=== PATIENT | female | born 1970 | race Hispanic/Latino ===

== ENCOUNTER 2020-06-20 11:23 | Emergency (ER) | payer OTHER ==
[~2020-06-20] VITALS: Ht 162.6 cm; Wt 82.6 kg
--- NOTE | 2020-06-20 11:55 | Emergency Department Note ---
History of Present Illnes History of Present Illness Chief Complaint: COVID PUI History of Present Illness This is a 50 year old female c/o flu-like symptoms for 2 weeks, cough, sore throat f/c body ache. She was told told to have a flu. Arrival Mode: Car [employer] Consultant Required: No Onset (how long ago): week(s) Radiation: Reports non-radiation Severity: mild Onset quality: gradual Duration (how long): week(s) Timing of current episode: intermittent Progression: waxing and waning Relieving factors: none Exacerbating factors: none Associated symptoms: Reports other Treatments prior to arrival: none Past Medical/Family History Physician Review I have reviewed the patient's past medical and family history. Any updates have been documented here. Past Medical History Recent Fever: Yes Clinical Suspicion of Infectio: Yes New/Unexplained Change in Ment: No Past Medical History: None Past Surgical History: None Social History Smoking Cessation: Unknown if ever smoked Alcohol Use: Social Any Illegal Drug Use: No TB Exposure/Symptoms: No Physically hurt or threatened: No Family History Family history of heart diseas: No Other Any Pre-Existing Lines (PICC,: No Review of Systems Review of Systems Constitutional: Reports as per HPI, Reports chills, Reports fever, Reports malaise, Reports weakness EENTM: Reports no symptoms Cardiovascular: Reports no symptoms Respiratory: Reports chest congestion, Reports cough Gastrointestinal: Reports no symptoms Genitourinary: Reports no symptoms Musculoskeletal: Reports no symptoms Integumentary: Reports no symptoms Neurological: Reports no symptoms Psychological: Reports no symptoms Endocrine: Reports no symptoms Hematological/Lymphatic: Reports no symptoms Physical Exam Related Data Allergies: Coded Allergies: No Known Allergies (Unverified , 06/20/20) Vital signs reviewed: Yes (temp 100.3) Physical Exam CONSTITUTIONAL Constitutional: Present well-developed, Present well-nourished HENT HENT: Present normocephalic, Present atraumatic, Present oropharynx clear/moist, Present nose normal HENT L/R: Present left ext ear normal, Present right ext ear normal EYES Eyes: Reports PERRL, Reports conjunctivae normal NECK Neck: Present ROM normal PULMONARY Pulmonary: Present effort normal, Present breath sounds normal CARDIOVASCULAR Cardiovascular: Present regular rhythm, Present heart sounds normal, Present capillary refill normal, Present normal rate GASTROINTESTINAL Abdominal: Present soft, Present nontender, Present bowel sounds normal GENITOURINARY Genitourinary: Present exam deferred SKIN Skin: Present warm, Present dry MUSCULOSKELETAL Musculoskeletal: Present ROM normal NEUROLOGICAL Neurological: Present alert, Present oriented x 3, Present no gross motor or sensory deficits PSYCHOLOGICAL Psychological: Present mood/affect normal, Present judgement normal Assessment & Plan Medical Decision Making MDM covid 19 vs viral illness Assessment & Plan Final Impression: (1) COVID-19 virus infection Depart Disposition: HOME, SELF-CARE Physician Attestation Provider Attestation Pt is nontoxic, VSS, taking PO well, can d/yehuda. rec pt to go out patient testing. SHELDON HERNANDEZ MD Jun 20, 2020 11:55
--- OUTSIDE RECORDS SUMMARY | 2020-06-20 12:14 | XMS REPORT | Clinical Summary ---
Author Author [facility] Organization [facility] Address Unknown Phone Unavailable Care Team Providers Care Blood Bank Manager Name Role Phone Nolberto Dsouza DDS 6 Nadiya Lee MD PCP Allergies No Known Allergies Medications End Date Status Medication Sig Dispensed Refills Start Date Active PRECISION XTRA 1 1 0 GLUCOMETERIndications: DM 9 (diabetes mellitus) Active PRECISION XTRA TEST bid three 50 3 STRIPSIndications: DM times per 9 (diabetes mellitus) week Active ACCU-CHEK SOFTCLIX 3 times a 50 113 00 LANCETSIndications: DM week 9 (diabetes mellitus) Active blood glucose Use as 1 Kit 0 meterIndications: Type 2 directed.. 6 diabetes mellitus without complication, without long-term current use of insulin Active hydroCHLOROthiazide Take 1 90 capsule 1 (MICROZIDE) 12.5 mg capsule by 0 capsuleIndications: mouth every Essential hypertension morning. with goal blood pressure less than 140/90 Active metFORMIN (GLUCOPHAGE) Take 2 360 tablet 1 500 mg tabletIndications: tablets by 0 Type 2 diabetes mellitus mouth 2 times without complication, daily (with without long-term current meals). use of insulin Active lisinopriL (PRINIVIL, Take 1 tablet 90 tablet 1 ZESTRIL) 40 mg by mouth 0 tabletIndications: daily. Essential hypertension with goal blood pressure less than 140/90 Active blood glucose test Use 2 times 100 Each 11 stripsIndications: Type 2 daily 0 diabetes mellitus without complication, without long-term current use of insulin Active ibuprofen (MOTRIN) 400 mg Take 1 tablet 60 tablet 1 tabletIndications: by mouth 0 Chronic midline low back every 12 pain without sciatica hours as needed for Pain (take with food). Active lancets 28 Use 2 times a 100 Each 11 gaugeIndications: Type 2 day 0 diabetes mellitus without complication, without long-term current use of insulin Active metoprolol tartrate Take 1 tablet 180 tablet 0 05/12 (LOPRESSOR) 25 mg by mouth 2 0 tabletIndications: times daily. Essential hypertension with goal blood pressure less than 140/90 Active glimepiride (AMARYL) 4 mg Take 1 tablet 90 tablet 1 tabletIndications: by mouth 0 Uncontrolled diabetes daily (with mellitus type 2 without breakfast). complications 06/28/2020 Active amoxicillin (AMOXIL) 500 Take 1 30 capsule 0 0 mg capsuleIndications: capsule by 0 Cough mouth 3 times daily for 10 days. 06/24/2020 Active Brompheniramine-Pseudoeph Take 5 mL by 120 mL 0 -DM (BROMFED DM) 2-30-10 mouth 4 times 0 mg/5 mL syrupIndications: daily as Cough needed for up to 10 days for Cough. Active simvastatin (ZOCOR) 10 mg Take 1 tablet 30 tablet 0 tabletIndications: by mouth at 0 Dyslipidemia bedtime nightly. 06/25/2020 Active iouuqoiq-trgvfltet-lbttrr Instill 3 10 mL 0 ortisone (CORTISPORIN) Drops in 0 3.5-10,000-1 right ear 4 mg/mL-unit/mL-% otic times daily solutionIndications: Ear for 7 days. ache 08/06/2019 Discontinued (Reorder) glimepiride (AMARYL) 1 mg Take 2 180 tablet 1 tabletIndications: Type 2 tablets by 9 diabetes mellitus without mouth every complication, without morning long-term current use of (after insulin breakfast). 08/06/2019 Discontinued (Reorder) hydroCHLOROthiazide Take 1 90 capsule 1 (MICROZIDE) 12.5 mg capsule by 9 capsuleIndications: mouth every Essential hypertension morning. with goal blood pressure less than 140/90 08/06/2019 Discontinued (Reorder) metFORMIN (GLUCOPHAGE) Take 2 360 tablet 1 500 mg tabletIndications: tablets by 9 Type 2 diabetes mellitus mouth 2 times without complication, daily (with without long-term current meals). use of insulin 06/26/2019 Discontinued (Reorder) metoprolol tartrate Take 1 tablet 180 tablet 1 12/14 (LOPRESSOR) 25 mg by mouth 2 9 tabletIndications: times daily. Essential hypertension with goal blood pressure less than 140/90 06/26/2019 Discontinued (Reorder) simvastatin (ZOCOR) 10 mg Take 1 tablet 90 tablet 1 tabletIndications: by mouth at 9 Dyslipidemia bedtime nightly. 06/26/2019 Discontinued (Reorder) lisinopril (PRINIVIL, Take 1 tablet 90 tablet 1 ZESTRIL) 40 mg by mouth 9 tabletIndications: daily. Essential hypertension with goal blood pressure less than 140/90 12/15/2019 Discontinued (Reorder) blood glucose test Use 2 times 100 Each 01/09/ 01 stripsIndications: Type 2 daily 9 diabetes mellitus without complication, without long-term current use of insulin 12/15/2019 Discontinued (Reorder) lancets 28 Use 2 times 100 Each 11 gaugeIndications: Type 2 weekly 9 diabetes mellitus without complication, without long-term current use of insulin 08/06/2019 Discontinued (Reorder) lisinopril (PRINIVIL, Take 1 tablet 90 tablet 0 ZESTRIL) 40 mg by mouth 9 tabletIndications: daily. Essential hypertension with goal blood pressure less than 140/90 08/06/2019 Discontinued (Reorder) simvastatin (ZOCOR) 10 mg Take 1 tablet 90 tablet 0 tabletIndications: by mouth at 9 Dyslipidemia bedtime nightly. 08/06/2019 Discontinued (Reorder) metoprolol tartrate Take 1 tablet 180 tablet 0 06/12 (LOPRESSOR) 25 mg by mouth 2 9 tabletIndications: times daily. Essential hypertension with goal blood pressure less than 140/90 08/06/2019 tropicamide (MYDRIACYL) Instill 1 15 mL 0 0.5 % ophthalmic Drop in each 9 solutionIndications: Type eye once as 2 diabetes mellitus needed for up without complication, to 1 dose without long-term current (for poor use of insulin retina scan image). 08/14/2019 nitrofurantoin Take 1 14 capsule 0 mono/m-crystals capsule by 9 (MACROBID) 100 mg mouth 2 times capsuleIndications: daily for 7 Dysuria days. 12/15/2019 Discontinued (Therapy comple vickie) glimepiride (AMARYL) 1 mg Take 3 270 tablet 1 tabletIndications: Type 2 tablets by 9 diabetes mellitus without mouth every complication, without morning long-term current use of (after insulin breakfast). 12/15/2019 Discontinued (Reorder) lisinopril (PRINIVIL, Take 1 tablet 90 tablet 1 ZESTRIL) 40 mg by mouth 9 tabletIndications: daily. Essential hypertension with goal blood pressure less than 140/90 12/15/2019 Discontinued (Reorder) simvastatin (ZOCOR) 10 mg Take 1 tablet 90 tablet 1 tabletIndications: by mouth at 9 Dyslipidemia bedtime nightly. 12/15/2019 Discontinued (Reorder) metoprolol tartrate Take 1 tablet 180 tablet 1 07/14 (LOPRESSOR) 25 mg by mouth 2 9 tabletIndications: times daily. Essential hypertension with goal blood pressure less than 140/90 12/15/2019 Discontinued (Reorder) hydroCHLOROthiazide Take 1 90 capsule 1 (MICROZIDE) 12.5 mg capsule by 9 capsuleIndications: mouth every Essential hypertension morning. with goal blood pressure less than 140/90 12/15/2019 Discontinued (Reorder) metFORMIN (GLUCOPHAGE) Take 2 360 tablet 1 500 mg tabletIndications: tablets by 9 Type 2 diabetes mellitus mouth 2 times without complication, daily (with without long-term current meals). use of insulin 05/28/2020 Discontinued (Reorder) glimepiride (AMARYL) 4 mg Take 1 tablet 90 tablet 1 tabletIndications: by mouth 0 Uncontrolled diabetes daily (with mellitus type 2 without breakfast). complications 05/27/2020 Discontinued (Reorder) metoprolol tartrate Take 1 tablet 180 tablet 1 (LOPRESSOR) 25 mg by mouth 2 0 tabletIndications: times daily. Essential hypertension with goal blood pressure less than 140/90 06/14/2020 Discontinued (Reorder) simvastatin (ZOCOR) 10 mg Take 1 tablet 90 tablet 1 tabletIndications: by mouth at 0 Dyslipidemia bedtime nightly. 12/15/2019 Discontinued lancets 28 Use 2 times 100 Each 11 gaugeIndications: Type 2 weekly 0 diabetes mellitus without complication, without long-term current use of insulin 06/14/2020 Discontinued (Reorder) gzkqgpjl-dpjgmvqva-iqhwou Instill 3 5 mL 0 ortisone (CORTISPORIN) Drops in 0 3.5-10,000-1 right ear 4 mg/mL-unit/mL-% otic times daily solutionIndications: Ear for 7 days. 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 08/13/2019 edema associated with type 2 diabetes m samanthaitus History of complete foot exam by sulphate tester or other provider 04/10/2014 Obesity (BMI 30-39.9) 12/24/2013 Hip pain 02/23/2010 Hypertriglyceridemia 05/24/2007 Obesity, unspecified 10/15/2006 Type 2 diabetes mellitus with ophthalmic complication , without long-term 10/15/2006 current use of insulin HTN (hypertension) 10/15/2006 Encounters Care Team Description Date Type Specialty Nadiya Lee MD Nguyen, Hung V, MD Cough (Primary Dx); Ear ache; Acute upper respiratory infection 06/14/2020 Telephonic Family Practice Encounter Nadiya Lee MD Dyslipidemia; Ear ache 06/14/2020 Refill Family Practice Nadiya Lee MD Uncontrolled diabetes mellitus type 2 wi thout complications 05/28/2020 Refill Family Practice Nadiya Lee MD Uncontrolled diabetes mellitus type 2 wi thout complications; Essential hypertension with goal blood pressure less than 140/90 05/27/2020 Refill Family Practice Nadiya Lee MD 12/15/2019 Ancillary Radiology Procedure Nadiya Lee MD Uncontrolled diabetes mellitus type 2 wi thout complications (Primary Dx); Need for vaccination; Chronic midline low back pain without sciatica; Essential hypertension with goal blood pressure less than 140/90; Type 2 diabetes mellitus without complication, without long-term current use of insulin; Dyslipidemia 12/15/2019 Office Visit Family Practice Nadiya Lee MD Chronic midline low back pain without sc iatica 12/15/2019 Orders Only Family Practice Nadiya Lee MD Type 2 diabetes mellitus without complic ation, without long- term current use of insulin 12/15/2019 Refill Family Practice Leonardo Blount MD Type 2 diabetes mellitus with both eyes affected by mild nonproliferative retinopathy without macular edema, without long-term current use of insulin (Primary Dx); Obesity (BMI 30-39.9); Exercise counseling for Above Normal BMI Only!; Dietary counseling for Above / Below Normal BMI 08/13/2019 Office Visit Family Practice Nadiya Lee MD Type 2 diabetes mellitus without complic ation, without long- term current use of insulin 08/06/2019 Ancillary Ophthalmology Procedure Nadiya Lee MD Dysuria (Primary Dx); Type 2 diabetes mellitus without complication, without long-term current use of insulin; Essential hypertension with goal blood pressure less than 140/90; Dyslipidemia 08/06/2019 Office Visit Family Practice Nadiya Lee MD Essential hypertension with goal blood p ressure less than 140/90; Dyslipidemia 06/26/2019 Refill Family Practice after 06/20/2019 Immunizations Name Administration Dates Next Due Influenza Vaccine 08/27/2015, 09/03/2014, 09/18/2012, , 10/15/2007 10/15/2006 Influenza, Injectable, 12/15/2019 Quadrivalent Pneumoccoccal 04/10/2014, 01/20/2009 01/20/2019 Tdap Tetanus, diphtheria, 04/08/2013 acellular pertussis Vaccine Family History Medical History Relation Name Comments Diabetes Mother Relation Name Status Comments Father Alive Mother Alive Social History Date Tobacco Use Types Packs/Day Years Used Never Smoker Smokeless Tobacco: Never Used Tobacco Cessation: Counseling Given: Yes Drinks/Week oz/Week Comments Alcohol Use No Food Insecurity Answer Date Recorded Within the past 12 months, you worried that your Never guru e 01/08/2019 food would run out before you got money to buy more. Within the past 12 months, the food you bought Never true 01/08/2019 just didn't last and you didn't have mo teresa to get more. Sex Assigned at Date Recorded Not on file Industry Job Start Date Occupation Not on file Not on file Not on file Travel End Travel History Travel Start No recent travel history available. Date Recorded COVID-19 Exposure Response 06/18/2020 11:35 AM CDT In the last month, have you been in contact with No / Unsure someone who was confirmed or suspected to have Coronavirus / COVID-19? Last Filed Vital Signs Reading Time Taken Comments Vital Sign 125/86 12/15/2019 1:02 PM PUMPER GAGER Blood Pressure 92 12/15/2019 1:02 PM PUMPER GAGER Pulse 36.8 C (98.3 F) 12/15/2019 1:02 PM PUMPER GAGER Temperature 18 12/15/2019 1:02 PM PUMPER GAGER Respiratory Rate - - Oxygen Saturation - - Inhaled Oxygen Concentration 84.5 kg (186 lb 3.2 oz) 12/15/2019 1:02 PM PUMPER GAGER Weight 149.9 cm (4' 11") 12/15/2019 1:02 PM PUMPER GAGER Height 37.61 12/15/2019 1:02 PM PUMPER GAGER Body Mass Index Plan of Treatment Care Team Description Date Type Specialty Nadiya Lee MD [address] [place], [place] [id number] high blood pressure, headaches 06/25/2020 Telephonic Family Practice Encounter Nadiya Lee MD [address] [place], [place] [id number] 2 week f/u 06/28/2020 Telephonic Family Practice Encounter Health Maintenance Due Date Last Done Comments Breast Cancer Scrn 04/18/2020 04/18/2019, (Yearly) 03/28/2018, 03/27/2017, Additional history exists DM Foot Exam (Yearly) 08/06/2020 08/06/2019, 07/24/2018, 08/07/2017, Additional history exists DM Retinal Exam (Yearly) 08/06/2020 08/06/2019, 08/07/2017, 06/21/2016, Additional history exists DM HGBA1C (Yearly) 12/15/2020 12/15/2019, 08/06/2019, 04/10/2019, Additional history exists Cervical Cancer Scrn (3 01/08/2022 01/08/2019, Yrs) 06/02/2014, 04/08/2013, Additional history exists Goals Goal Patient Associated Recent Progress Patient-Stat Aut hor Goal Type Problems ed? Increase Physical Activity Lifestyle No Marleni Jonas Note: Patient walks 30 mins daily Eat Healthy Lifestyle No Nadiya Lee MD Eat Healthy Lifestyle No Janine Jay Note: Natural herbs Procedures Comments Procedure Name Priority Date/Time Associated Diag nosis XRAY SPINE LUMBOSACRAL Routine 12/15/2019 Chronic midline low back AP-LAT 2:17 PM PUMPER GAGER pain without sciati ca GLUCOSE Routine 12/15/2019 Uncontrolled di abetes 1:40 PM PUMPER GAGER mellitus type 2 without complications CBC (WITHOUT Routine 12/15/2019 Uncontrolled di abetes DIFFERENTIAL) 1:40 PM PUMPER GAGER mellitus type 2 wit hout complications LIPID PROFILE Routine 12/15/2019 Uncontrolled di abetes 1:40 PM PUMPER GAGER mellitus type 2 without complications HEMOGLOBIN A1C STAT 12/15/2019 Uncontrolled di abetes 1:40 PM PUMPER GAGER mellitus type 2 without complications MICROALBUMIN / CREATININE Routine 08/13/2019 Type 2 diabetes mellitus URINE RATIO 3:56 PM CDT with both eyes affe cted by mild nonproliferative retinopathy without macular edema, without long-term current use of insulin URINE CULTURE Routine 08/06/2019 Dysuria 12:36 PM CDT URINALYSIS Routine 08/06/2019 Dysuria 12:36 PM CDT URINALYSIS Routine 08/06/2019 Dysuria 12:36 PM CDT HEMOGLOBIN A1C Routine 08/06/2019 Type 2 diabetes mellitus 12:36 PM CDT without complication, without long-term current use of insulin BASIC METABOLIC PANEL Routine 08/06/2019 Type 2 d iabetes mellitus 12:36 PM CDT without complication, without long-term current use of insulin DIABETIC FOOT EXAM Routine 08/06/2019 Type 2 diab etes mellitus 12:17 PM CDT without complication, without long-term current use of insulin OPHTHALMOLOGY RETINAL Routine 08/06/2019 Type 2 d iabetes mellitus SCAN 12:11 PM CDT without complicatio n, without long-term current use of insulin after 06/20/2019 Results * XRAY SPINE LUMBOSACRAL AP-LAT (12/15/2019 2:17 PM PUMPER GAGER) Specimen Impressions Performed At IMPRESSION: SMS 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 If the report is "FINALIZED" it indicat es that the attending/staff radiologist has reviewed the images and agrees with the resident's interpretation. Dictated By: Alli Neal MD, 12/15/2019 2: 53 PM I have reviewed the study and agree wit h the findings in this report. Signed By: Carl Ceja MD, 12/15/2019 2:5 3 PM Narrative Performed At Lumbar Spine Radiographs - 2 view(s) SMS HISTORY: lumbosacral pain x 1mth, wor se with lifting heavy or sitting for long time COMPARISON: Lumbar spine 2013 DISCUSSION: Bone: Osseous structures are partially obscur ed by stool and bowel gas. Transitional vertebrae with hypoplastic disc space. Normal alignment. No displaced fracture or compression de formity. Discs: The disc spaces are well maintained. Joints: Pseudoarthrosis on the right at the lum bosacral junction Procedure Note Interface, Rad/Mammog In - 12/15/2019 2:58 PM PUMPER GAGER Lumbar Spine Radiographs - 2 view(s) HISTORY: lumbosacral pain x 1mth, worse with lifting heavy or sitting for long time COMPARISON: Lumbar spine 2013 DISCUSSION: Bone: Osseous structures are partially obscured by stool and bowel gas. Transitional vertebrae with hypoplastic disc space. Normal alignment. No displaced fracture or compression deformity. Discs: The disc spaces are well maintained. 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 If the report is "FINALIZED" it indicates that the attending/staff radiologist has reviewed the images and agrees with the resident's interpretation. Dictated By: Alli Neal MD, 12/15/2019 2:53 PM I have reviewed the study and agree with the findings in this report. Signed By: Carl Ceja MD, 12/15/2019 2:53 PM Performing Organization Address [facility] one Number SMS * Hemoglobin A1C (12/15/2019 1:40 PM PUMPER GAGER) Only the most recent of 2 results within the time period is included. Pathologist [facility] Hemoglobin A1c 8.5 (H) 4.3 - 6.1 % [facility] Estimated 197 (H) 70 - 110 mg/dL [facility] Average Glucose Specimen Blood Performing Organization Address [facility] one Number [facility] [address] [place] [address] [facility] * Lipid Profile (12/15/2019 1:40 PM PUMPER GAGER) Pathologist [facility] Cholesterol 168.0 <=200.0 mg/dL [facility] Triglyceride 318 (H) <150 mg/dL [facility] HDL 53.0 See Reference Range [facility] Narrative. mg/dL [facility] LDL 51 <100 mg/dL [facility] Comment: [facility] Optimal: < 100.0 mg/dL Near Optimal: 120-129 mg/dL Borderline: 130-159 mg/dL High: 160-189 mg/dL Very High: >=190 mg/dL Patient No [facility] Fasting? LABOR[facility] Specimen Blood Narrative Performed At Patient is not fasting. For a triglyceride result gre ater than 440 mg/dL, [facility] consider re-testing when the patient is in a fasting state. Performing Organization Address [facility] one Number [facility] [address] [place] [address] * GLUCOSE, BLOOD (12/15/2019 1:40 PM PUMPER GAGER) [facility] Glucose 280 (H) 70 - 110 mg/dL [facility] Specimen Blood Performing Organization Address [facility] one Number [facility] [address] [place], [place] [phone] * CBC (without differential) (12/15/2019 1:40 PM PUMPER GAGER) Pathologist [facility] WBC 6.6 4.5 - 11.0 K/uL [facility] RBC 4.21 4.20 - 5.40 M/uL [facility] Hemoglobin 13.2 12.0 - 16.0 g/dL [facility] Hematocrit 41.1 37.0 - 47.0 % [facility] MCV 97.6 (H) 82.0 - 92.0 fL [facility] MCH 31.4 27.0 - 32.0 pg [facility] MCHC 32.1 32.0 - 36.0 g/dL [facility] RDW 46.7 (H) 36.4 - 46.3 fL [facility] Platelet 226 150 - 400 K/uL [facility] Mean Platelet 11.1 9.4 - 12.4 fL [facility] Volume [facility] Percent NRBC 0.0 % [facility] Specimen Blood Performing Organization Address [facility] one Number [facility] [address] [place] [address] * Microalb/Crea Ratio,Ur (08/13/2019 3:56 PM CDT) Microalbumin, <0.7 <30.0 mg/dL [facility] Random [facility] Creatinine, 63 20 - 320 mg/dL [facility] Urine [facility] Urine <11.1 0.0 - 30.0 mg/g [facility] Microalbumin [facility] Specimen Urine - Voided, urine Performing Organization Address [facility] one Number [facility] [address] [place] [address] * Urinalysis (08/06/2019 12:36 PM CDT) Color Yellow Colorless, Straw, [facility] Clarity Hazy (A) Clear [facility] Spec [place], 1.018 1.001 - 1.035 [facility] Ur [facility] pH, Ur 6.0 5.0 - 8.0 [facility] Protein, Ur Negative Negative mg/dL [facility] Glucose, Ur Negative Negative mg/dL [facility] Ketone, Ur Negative Negative mg/dL [facility] Bilirubin, Ur Negative Negative mg/dL [facility] Nitrite, Ur Negative Negative [facility] Leukocyte trace (A) Negative mg/dL [facility] Blood, Ur Negative Negative mg/dL [facility] RBC 4 0 - 4 /HPF [facility] WBC 2 0 - 5 /HPF [facility] Epithelial Cell 2 (H) <=1 /HPF [facility] Urobilinogen, <1.0 <1.0 EU/dL [facility] Ur [facility] Specimen Urine Performing Organization Address [facility] one Number [facility] [address] [place] [address] * Urine Culture (08/06/2019 12:36 PM CDT) Urine Culture No growth 2 days [facility] Specimen Urine - Voided, urine Performing Organization Address [facility] one Number [facility] [address] [place] [address] * Basic Metabolic Panel (08/06/2019 12:36 PM CDT) Sodium 139 136 - 145 mmol/L [facility] Potassium 4.2 3.5 - 5.1 mmol/L [facility] Chloride 101 98 - 107 mmol/L [facility] CO2 27 21 - 31 mmol/L [facility] Urea Nitrogen 11.0 7.0 - 25.0 mg/dL [facility] Creatinine 0.5 (L) 0.6 - 1.2 mg/dL [facility] Glucose 302 (H) 70 - 110 mg/dL [facility] Calcium 9.3 8.6 - 10.3 mg/dL [facility] GFR, Estimated >90 >=90 mL/min/1.73 m2 [facility] Anion Gap 11 5 - 16 mmol/L [facility] Specimen Blood Performing Organization Address [facility] one Number [facility] [address] [place] [address] [phone] * DIABETIC FOOT EXAM (08/06/2019 12:17 PM CDT) Narrative Performed At Nadiya Lee MD 08/06/2019 12:1 8 PM Diabetic Foot Exam was performed at 07/14 12:17 PM. Right foot sensation is normal, right foot pulses are normal, right foot appearance is normal. Left foot sensation is nor mal, left foot pulses are normal, left foot appearance is normal. * OPHTHALMOLOGY RETINAL SCAN (08/06/2019 12:11 PM CDT) RETINAL ALERT (A) IRIS SCAN-FINAL RESULT Right Diabetic Mild (A) IRIS Retinopathy Right Macular None IRIS Edema Right Other None IRIS Suspected Conditions Right Image Gradeable Image IRIS Quality Left Diabetic Mild (A) IRIS Retinopathy Left Macular None IRIS Edema Left Other None IRIS Suspected Conditions Left Image Gradeable Image IRIS Quality Specimen Narrative Performed At Retinal Study Result for GALILEO GLASS MARGARITA, a 49 y/o, F (: 0 1970, ) presented to [facility] on 08-06-2019 for a retinal imaging study of the left and r ight eyes. Based on the findings of the study, the following is recommended for GALILEO GLASS Mild Pathology Found: Please advise the patient to return for another scan in 1 year. Interpreting Provider's Comments: No comments provided Right Eye Findings: Diabetic Retinopathy: Mild Left Eye Findings: Diabetic Retinopathy: Mild This result was electronically signed Rich Enamorado MD, , Taxonomy: [id number] on 08-06-2019 05:2 4:48 [facility] time. NOTE: Any pathology noted on this megan betic retinal evaluation should be confirmed by an appropriate ophthalmic examination. Performing Organization Address [facility] after 06/20/2019 Insurance Type Payer Benefit Subscriber ID Effective Phone Address Plan / Dates Group [facility] xxxxxxxxxxxx [id number] [address] [facility] [id number] [facility] [place] [id number] [facility] PLAN FINANCIAL xxxxx 2019-8 [address] [place] [address]
--- OUTSIDE RECORDS SUMMARY | 2020-06-20 12:14 | XMS REPORT | Continuity of Care Document ---
Author Author [facility] t Organization [facility] Address [address] [place] [address] Phone Unavailable Care Team Providers Care Litigator Name Role Phone Rosa GONG, P Nihita PCP Rosa GONG, P Paigeita Attphys Ronda GONG, Jaguar Attphys Jose Alejandro GONG, Leonardo Attphys Payers Payer Name Policy Type Policy Number Effective Date Expiration Date [facility] [employer] M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 associated with type 2 diabetes mellitus Disease Active 2019-08-13 00:00:00 [facility] History of complete foot exam by community ambassador or other p rovider History of complete foot exam by community ambassador or other provider Disease Active 2014-04-10 00:00:00 [facility] Obesity (BMI 30-39.9) Obesity (BMI 30-39.9) Disease Active 201 02-12-12 00:00:00 [facility] Hip pain Hip pain Disease Active 2010-02-23 00:00:00 [facility] Hypertriglyceridemia Hypertriglyceridemia Disease Active 00:00:00 [facility] Obesity, unspecified Obesity, unspecified Disease Active 00:00:00 [facility] Type 2 diabetes mellitus with ophthalmic complication, 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 Family History Family Member Diagnosis Comments Start Date Stop Date Source Natural mother Diabetes [facility] Social History Social Habit Start Date Stop Date Quantity Comments Source Sex Assigned At [facility] Exposure to SARS-CoV-2 (event) Not sure [facility] Alcohol intake 2020-06-14 00:00:00 2020-06-14 00:00:00 Current non-drinker of alcohol (finding) [facility] History SDOH Food Worry 2019-01-08 00:00:00 2019-01-08 00:00:00 1 [facility] Food Scarcity 2019-01-08 00:00:00 2019-01-08 00:00:00 1 [facility] Smoking Status Start Date Stop Date Source Never smoker [facility] Medications Ordered Medication Name Filled Medication Name Start Date Stop Da te Current Medication? Ordering Clinician Indication Dosage Frequency Signature (SIG) Comments Components Source simvastatin (ZOCOR) 10 mg tablet 2020-06-18 00:00:00 Yes Dyslipidemia 10mg Take 1 tablet by mouth at bedtime nightly. [facility] pxhqbchr-hawdaabjj-qohalnqccdfcgi (CORTI SPORIN) 3.5-10,000-1 mg/mL-unit/mL-% otic solution 2020-06-18 00:00:00 2020-06-25 23:59:00 Yes Ea r ache 3[drp] Instill 3 Drops in right ear 4 times daily for 7 days. [facility] amoxicillin (AMOXIL) 500 mg capsule 2020-06-14 00:00:0 0 2020-06-28 23:59:00 Yes Cough 500mg Take 1 capsule by mouth 3 times daily fo r 10 days. [facility] Qxxwirlwbuiybcd-Rcfubksfo-UW (BROMFED DM) 2-30-10 mg/5 mL sy rup 2020-06-14 00:00:00 2020-06-24 23:59:00 Yes Cough 5mL Take 5 mL by mouth 4 times daily as needed for up to 10 days for [facility]ough. [facility]hlvutgy-rlyvejzjv-yccjwplzyoshdi (CORTI SPORIN) 3.5-10,000-1 mg/mL-unit/mL-% otic solution 2020-06-14 00:00:00 2020-06-14 00:00:00 No Ea r ache 3[drp] Instill 3 Drops in right ear 4 times daily for 7 days. [facility] metoprolol tartrate (LOPRESSOR) 25 mg tablet 2020-05-28 00:0 0:00 Yes Essential hypertension with goal blood pressure less than 140/90 25mg Q.5D Take 1 tablet by mouth 2 times daily. [facility] glimepiride (AMARYL) 4 mg tablet 2020-05-28 00:00:00 Yes Uncontrolled diabetes mellitus type 2 without complications 4mg QD Take 1 tablet by mouth daily (with breakfast). [facility] lancets 28 gauge 2019-12-18 00:00:00 Yes Type 2 diabetes mellitus without complication, without long-term current use of insulin Use 2 times a day [facility] hydroCHLOROthiazide (MICROZIDE) 12.5 mg capsule 2019-12-15 0 0:00:00 Yes Essential hypertension with goal blood pressure less than 140/90 12.5mg Take 1 capsule by mouth every morning. [facility] metFORMIN (GLUCOPHAGE) 500 mg tablet 2019-12-15 00:00:00 Yes Type 2 diabetes mellitus without complication, without long-term current use of insulin 1000mg Take 2 tablets by mouth 2 times daily (with brian ls). [facility] lisinopriL (PRINIVIL, ZESTRIL) 40 mg tablet 2019-12-15 00:00 :00 Yes Essential hypertension with goal blood pressure less than 140/90 40mg QD Take 1 tablet by mouth daily. [facility] blood glucose test strips 2019-12-15 00:00:00 Yes Type 2 diabetes mellitus without complication, without long-term current use of insulin Q.5D Use 2 times daily [facility] ibuprofen (MOTRIN) 400 mg tablet 2019-12-15 00:00:00 Yes Chronic midline low back pain without sciatica 400mg Take 1 ta blet by mouth every 12 hours as needed for Pain (take with food). [facility] simvastatin (ZOCOR) 10 mg tablet 2019-12-15 00:00:00 2020-06 00:00:00 No Dyslipidemia 10mg Take 1 tablet by mouth at bedtime nightly. [facility] glimepiride (AMARYL) 4 mg tablet 2019-12-15 00:00:00 2020-05 00:00:00 No Uncontrolled diabetes mellitus type 2 without complications 4mg QD Take 1 tablet by mouth daily (with breakfast). [facility] metoprolol tartrate (LOPRESSOR) 25 mg tablet 00:00:00 2020-05-27 00:00:00 No Essential hypertension with goal blood pressure less than 140/90 25mg Q.5D Take 1 tablet by mouth 2 times daily. [facility] lancets 28 gauge 2019-12-15 00:00:00 2019-12-15 00:00:00 No Type 2 diabetes mellitus without complication, without long-term current use of insulin Use 2 times weekly [facility] glimepiride (AMARYL) 1 mg tablet 2019-08-06 00:00:00 2019-12 00:00:00 No Type 2 diabetes mellitus without complication, without long-term current use of insulin 3mg QD Take 3 tablets by mouth every morning (after br eakfast). [facility] lisinopril (PRINIVIL, ZESTRIL) 40 mg tablet 2018 00:00:00 2019-12-15 00:00:00 No Essential hypertension with goal blood pressure less than 140/90 40mg QD Take 1 tablet by mouth daily. [facility] simvastatin (ZOCOR) 10 mg tablet 2019-08-06 00:00:00 2019-12 00:00:00 No Dyslipidemia 10mg Take 1 tablet by mouth at bedtime nightly. [facility] metoprolol tartrate (LOPRESSOR) 25 mg tablet 201 07-21-25 00:00:00 2019-12-15 00:00:00 No Essential hypertension with goal blood pressure less than 140/90 25mg Q.5D Take 1 tablet by mouth 2 times daily. [facility] hydroCHLOROthiazide (MICROZIDE) 12.5 mg capsule 2019-08-06 00:00:00 2019-12-15 00:00:00 No Essential hypertension with goal blood pressure less than 140/90 12.5mg Take 1 capsule by mouth every morning. [facility] metFORMIN (GLUCOPHAGE) 500 mg tablet 2019-08-06 00:00: 00 2019-12-15 00:00:00 No Type 2 diabetes mellitus wit hout complication, without long-term current use of insulin 1000mg Take 2 tablets by mouth 2 times daily (with meals). [facility] nitrofurantoin mono/m-crystals (MACROBID) 100 mg capsule 2019-08-06 00:00:00 2019-08-14 23:59:00 No Dysuria 100mg Q.5D Take 1 capsule by mouth 2 times daily for 7 days. [facility] tropicamide (MYDRIACYL) 0.5 % ophthalmic solution 2019-08-06 00:00:00 2019-08-06 23:59:00 No Type 2 diabetes ce itus without complication, without long-term current use of insulin 1[drp] Instill 1 Drop in each eye once as needed for up to 1 dose (for poor retina scan image). [facility] lisinopril (PRINIVIL, ZESTRIL) 40 mg tablet 2018 00:00:00 2019-08-06 00:00:00 No Essential hypertension with goal blood pressure less than 140/90 40mg QD Take 1 tablet by mouth daily. [facility] simvastatin (ZOCOR) 10 mg tablet 2019-06-27 00:00:00 2019-07 00:00:00 No Dyslipidemia 10mg Take 1 tablet by mouth at bedtime nightly. [facility] metoprolol tartrate (LOPRESSOR) 25 mg tablet 201 07-20-16 00:00:00 2019-08-06 00:00:00 No Essential hypertension with goal blood pressure less than 140/90 25mg Q.5D Take 1 tablet by mouth 2 times daily. [facility] blood glucose test strips 2019-01-09 00:00:00 2019-12-15 00: 00:00 No Type 2 diabetes mellitus without complication, without long-term current use of insulin Q.5D Use 2 times daily [facility] lancets 28 gauge 2019-01-09 00:00:00 2019-12-15 00:00:00 No Type 2 diabetes mellitus without complication, without long-term current use of insulin Use 2 times weekly [facility] glimepiride (AMARYL) 1 mg tablet 2019-01-08 00:00:00 2019-07 00:00:00 No Type 2 diabetes mellitus without complication, without long-term current use of insulin 2mg QD Take 2 tablets by mouth every morning (after br eakfast). [facility] hydroCHLOROthiazide (MICROZIDE) 12.5 mg capsule 2019-01-08 00:00:00 2019-08-06 00:00:00 No Essential hypertension with goal blood pressure less than 140/90 12.5mg Take 1 capsule by mouth every morning. [facility] metFORMIN (GLUCOPHAGE) 500 mg tablet 2019-01-08 00:00: 00 2019-08-06 00:00:00 No Type 2 diabetes mellitus wit hout complication, without long-term current use of insulin 1000mg Take 2 tablets by mouth 2 times daily (with meals). [facility] metoprolol tartrate (LOPRESSOR) 25 mg tablet 201 07-14-27 00:00:00 2019-06-26 00:00:00 No Essential hypertension with goal blood pressure less than 140/90 25mg Q.5D Take 1 tablet by mouth 2 times daily. [facility] simvastatin (ZOCOR) 10 mg tablet 2019-01-08 00:00:00 2019-06 00:00:00 No Dyslipidemia 10mg Take 1 tablet by mouth at bedtime nightly. [facility] lisinopril (PRINIVIL, ZESTRIL) 40 mg tablet 2018 00:00:00 2019-06-26 00:00:00 No Essential hypertension with goal blood pressure less than 140/90 40mg QD Take 1 tablet by mouth daily. [facility] blood glucose meter 2016-06-07 00:00:00 Yes Type 2 diabetes mellitus without complication, without long-term current use of insulin Use as directed.. [facility] PRECISION XTRA GLUCOMETER 2009-11-11 00:00:00 Yes DM (diabetes mellitus) 1 [facility] PRECISION XTRA TEST STRIPS 2009-11-11 00:00:00 Yes DM (diabetes mellitus) bid three times per week [facility] ACCU-CHEK SOFTCLIX LANCETS 2009-11-11 00:00:00 Yes DM (diabetes mellitus) 3 times a week [facility] Immunizations Ordered Immunization Name Filled Immunization Name Date Status Comments Source Influenza, Injectable, Quadrivalent 2019-12-15 00:00:00 Co mpleted [facility] Influenza Vaccine 2015-08-27 00:00:00 Completed [facility] Influenza Vaccine 2014-09-03 00:00:00 Completed [facility] Pneumoccoccal 2014-04-10 00:00:00 Completed [facility] Tdap Tetanus, diphtheria, acellular pertussis Vaccine 2013-04-08 00:00:00 Completed [facility] Influenza Vaccine 2012-09-18 00:00:00 Completed [facility] Influenza Vaccine 2011-12-28 00:00:00 Completed [facility] Pneumoccoccal 2009-01-20 00:00:00 Completed [facility] Influenza Vaccine 2006-10-15 00:00:00 Completed [facility] Vital Signs Vital Name Observation Time Observation Value Comments Source Systolic blood pressure 2019-12-15 13:02:00 125 mm[Hg] [facility] Diastolic blood pressure 2019-12-15 13:02:00 86 mm[Hg] [facility] Heart rate 2019-12-15 13:02:00 92 /min [facility] Body temperature 2019-12-15 13:02:00 36.83 Yennifer Kanika is [facility] Respiratory rate 2019-12-15 13:02:00 18 /min Kanika is [facility] Body height 2019-12-15 13:02:00 149.9 cm [facility] Body weight 2019-12-15 13:02:00 84.46 kg [facility] BMI 2019-12-15 13:02:00 37.61 kg/m2 [facility] Procedures Procedure Date / Time Performed Performing Clinician Sourc e XRAY SPINE LUMBOSACRAL AP-LAT 2019-12-15 14:17:07 Nadiya Lee [facility] HEMOGLOBIN A1C 2019-12-15 13:40:00 Nadiya Lee LIPID PROFILE 2019-12-15 13:40:00 [facility] 2019-12-15 13:40:00 [facility] 2019-12-15 13:40:00 Nadiya Lee MICROALBUMIN / CREATININE URINE RATIO 2019-08-13 15:56:00 Leonardo Stanton [facility] BASIC METABOLIC PANEL 2019-08-06 12:36:00 Nadiya Lee [facility] HEMOGLOBIN A1C 2019-08-06 12:36:00 [facility] 2019-08-06 12:36:00 [facility]ya Lee [facility] 2019-08-06 12:36:00 [facility] URINE CULTURE 2019-08-06 12:36:00 Nadiya Lee [facility] DIABETIC FOOT EXAM 2019-08-06 12:17:00 Nadiya Lee [facility] OPHTHALMOLOGY RETINAL SCAN 2019-08-06 12:11:06 Nadiya Lee [facility] Planned Activity Planned Date Details Comments Source Future Scheduled Test 2022-01-08 00:00:00 Screening for lawanda gnant neoplasm of cervix (procedure) [code = 826253274] [facility] Scheduled Test 2020-12-15 00:00:00 Hemoglobin A1c brian surement (procedure) [code = 97034258] [facility] Scheduled Test 2020-08-06 00:00:00 DM Foot Exam (Year ly) [code = DM Foot Exam (Yearly)] [facility] Scheduled Test 2020-08-06 00:00:00 DM Retinal Exam (Y early) [code = DM Retinal Exam (Yearly)] [facility] Scheduled Test 2020-04-18 00:00:00 Breast Cancer Scrn (Yearly) [code = Breast Cancer Scrn (Yearly)] [facility] Encounters Start Date/Time End Date/Time Encounter Type Admission Type Attendi [facility] Care Department Encounter ID Source 2019-08-13 14:33:37 2019-08-13 14:33:37 Outpatient [facility] [id number] [facility] 2019-08-13 00:00:00 2019-08-13 00:00:00 Outpatient [facility] [id number] [facility] 2019-08-06 12:34:08 2019-08-06 12:34:08 Outpatient [facility] [id number] [facility] 2019-08-06 12:06:56 2019-08-06 12:06:56 Outpatient [facility] [id number] [facility] 2019-08-06 11:16:44 2019-08-06 11:16:44 Outpatient [facility] [id number] [facility] 2019-08-06 00:00:00 2019-08-06 00:00:00 Outpatient [facility] [id number] [facility] 2019-07-28 00:00:00 2019-07-28 00:00:00 Outpatient [facility] [id number] [facility] 2019-07-17 07:08:00 2019-07-17 07:08:00 Emergency E [facility] [id number] 2019-07-16 00:00:00 2019-07-16 00:00:00 Outpatient [facility] [id number] [facility] 2019-07-01 00:00:00 2019-07-01 00:00:00 Outpatient [facility] [id number] [facility] 2019-06-17 00:00:00 2019-06-17 00:00:00 Outpatient [facility] [id number] [facility] 2019-05-14 00:00:00 2019-05-14 00:00:00 Outpatient [facility] [id number] [facility] 2019-05-13 00:00:00 2019-05-13 00:00:00 Outpatient [facility] [id number] [facility] 2019-04-25 00:00:00 2019-04-25 00:00:00 Outpatient [facility] [id number] [facility] 2019-04-24 00:00:00 2019-04-24 00:00:00 Outpatient [facility] [id number] [facility] 2019-04-22 00:00:00 2019-04-22 00:00:00 Outpatient [facility] [id number] [facility] 2019-04-21 00:00:00 2019-04-21 00:00:00 Outpatient [facility] [id number] [facility] 2019-04-18 13:08:03 2019-04-18 13:08:03 Outpatient [facility] [id number] [facility] 2019-04-17 00:00:00 2019-04-17 00:00:00 Outpatient [facility] [id number] [facility] 2019-04-17 00:00:00 2019-04-17 00:00:00 Outpatient [facility] [id number] [facility] 2019-04-17 00:00:00 2019-04-17 00:00:00 Outpatient [facility] [id number] [facility] 2019-04-11 00:00:00 2019-04-11 00:00:00 Outpatient [facility] [id number] [facility] 2019-04-10 11:26:54 2019-04-10 11:26:54 Outpatient [facility] [id number] [facility] 2019-04-10 10:43:12 2019-04-10 10:43:12 Outpatient [facility] [id number] [facility] 2019-03-13 00:00:00 2019-03-13 00:00:00 Outpatient [facility] [id number] [facility] 2019-03-05 00:00:00 2019-03-05 00:00:00 Outpatient [facility] [id number] [facility] 2019-02-18 00:00:00 2019-02-18 00:00:00 Outpatient [facility] [id number] [facility] 2019-02-05 00:00:00 2019-02-05 00:00:00 Outpatient [facility] [id number] [facility] 2019-01-10 00:00:00 2019-01-10 00:00:00 Outpatient [facility] [id number] [facility] 2019-01-10 00:00:00 2019-01-10 00:00:00 Outpatient [facility] [id number] [facility] 2019-01-08 15:49:52 2019-01-08 15:49:52 Outpatient [facility] [id number] [facility] 2018-11-20 00:00:00 2018-11-20 00:00:00 Outpatient [facility] [id number] [facility] 2018-11-01 00:00:00 2018-11-01 00:00:00 Outpatient [facility] [id number] [facility] 2018-10-21 00:00:00 2018-10-21 00:00:00 Outpatient [facility] [id number] [facility] 2018-10-10 08:09:40 2018-10-10 08:09:40 Outpatient [facility] [id number] [facility] 2018-10-10 00:00:00 2018-10-10 00:00:00 Outpatient [facility] [id number] [facility] 2018-09-01 00:00:00 2018-09-01 00:00:00 Outpatient [facility] [id number] [facility] 2018-08-30 00:00:00 2018-08-30 00:00:00 Outpatient [facility] [id number] [facility] 2018-08-29 00:00:00 2018-08-29 00:00:00 Outpatient [facility] [id number] [facility] 2018-08-21 00:00:00 2018-08-21 00:00:00 Outpatient [facility] [id number] [facility] 2018-08-20 00:00:00 2018-08-20 00:00:00 Outpatient [facility] [id number] [facility] 2018-08-19 00:00:00 2018-08-19 00:00:00 Outpatient [facility] [id number] [facility] 2018-08-19 00:00:00 2018-08-19 00:00:00 Outpatient [facility] [id number] [facility] 2018-07-24 15:13:17 2018-07-24 15:13:17 Outpatient [facility] [id number] [facility] 2018-06-06 00:00:00 2018-06-06 00:00:00 Outpatient [facility] [id number] [facility] 2018-05-07 00:00:00 2018-05-07 00:00:00 Outpatient [facility] [id number] [facility] 2018-04-12 00:00:00 2018-04-12 00:00:00 Outpatient [facility] [id number] [facility] 2018-03-28 09:26:34 2018-03-28 09:26:34 Outpatient [facility] [id number] [facility] 2018-03-28 08:27:56 2018-03-28 08:27:56 Outpatient [facility] [id number] [facility] 2018-03-12 15:50:38 2018-03-12 15:50:38 Outpatient [facility] [id number] [facility] 2018-01-31 00:00:00 2018-01-31 00:00:00 Outpatient [facility] [id number] [facility] 2017-12-21 00:00:00 2017-12-21 00:00:00 Outpatient [facility] [id number] [facility] 2017-08-16 00:00:00 2017-08-16 00:00:00 Outpatient [facility] [id number] [facility] 2017-08-15 00:00:00 2017-08-15 00:00:00 Outpatient [facility] [id number] [facility] 2017-08-07 11:10:45 2017-08-07 11:10:45 Outpatient [facility] [id number] [facility] 2017-08-07 10:58:22 2017-08-07 10:58:22 Outpatient [facility] [id number] [facility] 2017-08-07 09:27:15 2017-08-07 09:27:15 Outpatient [facility] [id number] [facility] Results Test Description Test Time Test Comments Results Result Comments Source CBC (without differential) 2019-12-16 08:05:00 Test Item WBC (test code = 6690-2) 6.6 K/uL 4.5-11 RBC (test code = 789-8) 4.21 4.20- 5.40 M/uL Hemoglobin (test code = 718-7) 13.2 g/dL 12-16 Hematocrit (test code = 4544-3) 41.1 % 37-47 MCV (test code = 787-2) 97.6 fL 82-92 H MCH (test code = 785-6) 31.4 pg 27-32 MCHC (test code = 786-4) 32.1 g/dL 32-36 RDW (test code = 78988-0) 46.7 fL 36.4-46.3 H Platelet (test code = 777-3) 226 K/uL 150-400 Mean Platelet Volume (test code = 93786-3) 11.1 fL 9.4-12.4 Percent NRBC (test code = 44352480) 0.0 % Lab Interpretation (test code = 91538-0) [facility]normal [facility] [id number] 07:25:00* Test Item Value Reference Range Interpretation Comments Glucose (test code = 65962286) 280 mg/dL 70-110 H Lab Interpretation (test code = 97072-3) Abnormal [facility] [id number] 07:25:00* Test Item Value Reference Range Interpretation Comments Cholesterol (test code = 2093-3) 168.0 mg/dL <=200.0 Triglyceride (test code = 98699121) 318 mg/dL <150 H HDL (test code = 2085-9) 53.0 mg/dL See Reference Range Narrative . LDL (test code = 43192-8) 51 mg/dL <100 Op timal: < 100.0 mg/dLNear Optimal: 120-129 mg/dLBorderline: 130-159 mg/dLHigh: 160-189 mg/dLVery High: >=190 mg/dL Patient Fasting? (test code = 85891796) No SHANTANU (test code = SHANTANU) Patient is not fasting. For a triglyceride result greater than 440 mg/dL, consider re-testing when the patient is in a fasting state. 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 If the report is "FINALIZED" it indic ates that the attending/staffradiologist has reviewed the images and agrees with the resident'sinterpretation. Dictated By: Alli Neal MD, 12/15/2019 2:53 PM I paula ve reviewed the study and agree with the findings in this report. 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 If the report is "FINALIZED" it indicates that the attendi ng/staffradiologist has reviewed the images and agrees with the resident'sinterp retation.Dictated By: Alli Neal MD, 12/15/2019 2:53 PMI have reviewed the study a nd agree with the findings in this report.Signed By: Carl Ceja MD, 12/15/2019 2: 53 PMHills HealthHemoglobin [id number] 14:36:00* Test Item Value Reference Range Interpretation Comments Hemoglobin A1c (test code = 4548-4) 8.5 % 4.3-6.1 H Estimated Average Glucose (test code = 59348211) 197 mg/dL 70-11 0 H Lab Interpretation (test code = 66297-8) Abnormal [facility],[id number] 21:55:00* Test Item Value Reference Range Interpretation Comments Microalbumin, Random (test code = 15815946) <0.7 <30.0 mg/d L Creatinine, Urine (test code = 32581267) 63 mg/dL 20-320 Urine Microalbumin (test code = 04053102) <11.1 0-30 Lab Interpretation (test code = 94405-8) [facility] [id number] 07:38:00* Test Item Value Reference Range Interpretation Comments Urine Culture (test code = 630-4) No growth 2 days [facility] Metabolic [id number] 07:28:00* Test Item Value Reference Range Interpretation Comments Sodium (test code = 2951-2) 139 mmol/L 136-145 Potassium (test code = 2823-3) 4.2 mmol/L 3.5-5.1 Chloride (test code = 2075-0) 101 mmol/L 98-107 CO2 (test code = 18193242) 27 mmol/L 21-31 Urea Nitrogen (test code = 92401587) 11.0 mg/dL 7-25 Creatinine (test code = 59683840) 0.5 mg/dL 0.6-1.2 L Glucose (test code = 78366290) 302 mg/dL 70-110 H Calcium (test code = 83013237) 9.3 mg/dL 8.6-10.3 GFR, Estimated (test code = 00213667) >90 >=90 mL/min/1.73 m2 Anion Gap (test code = 99397501) 11 mmol/L 5-16 Lab Interpretation (test code = 18527-8) Abnormal [facility]mousaEhfbroqdeu2167-36-91 01:58:00* Test Item Value Reference Range Interpretation Comments Color (test code = 80356839) Yellow Colorless, Straw, Yellow Clarity (test code = 62890709) Hazy Clear A Spec [place], Ur (test code = 56265334) 1.018 1.001-1.035 pH, Ur (test code = 45185859) 6.0 5.0-8.0 Protein, Ur (test code = 76136472) Negative Negative mg/dL Glucose, Ur (test code = 56598531) Negative Negative mg/dL Ketone, Ur (test code = 20767283) Negative Negative mg/dL Bilirubin, Ur (test code = 49016614) Negative Negative mg/dL Nitrite, Ur (test code = 09386082) Negative Negative Leukocyte (test code = 47893751) trace Negative mg/dL A Blood, Ur (test code = 82374834) Negative Negative mg/dL RBC (test code = 35713471) 4 0- 4 /HPF WBC (test code = 94933711) 2 0- 5 /HPF Epithelial Cell (test code = 73578298) 2 <=1 /HPF H Urobilinogen, Ur (test code = 62044623) <1.0 <1.0 EU/dL Lab Interpretation (test code = 18624-9) [facility]normal [facility] [id number] 12:24:48* Test Item Value Reference Range Interpretation Comments RETINAL SCAN-FINAL RESULT (test code = 57557) ALERT A Right Diabetic Retinopathy (test code = 007704) Mild A Right Macular Edema (test code = 84555) None Right Other Suspected Conditions (test code = 47756) None Right Image Quality (test code = 90029) Gradeable Image Left Diabetic Retinopathy (test code = 36178) Mild A Left Macular Edema (test code = 80559) None Left Other Suspected Conditions (test code = 29497) None Left Image Quality (test code = 28293) Gradeable Image SHANTANU (test code = SHANTANU) Retinal Study Result for GALILEO JOHNSON MARGARITA, a 49 y/o, F (: 1970, )presented to [facility] on 08-06-2019 for a retinal imaging study of the left and right eyes. Based on the findings of the study, the following is recommended for Wan JIMENEZ Pathology Found: Please advise the patient to return for another scan in 1 year. Interpreting Provider's Comments: No comments provided Right Eye Findings:Diabetic Retinopathy: Mild Left Eye Findings:Diabetic Retinopathy: Mild This result was electronically signed by Rich Kasper MD, , Taxonomy: [id number] on 08-06-2019 05:24:48 [facility] time. NOTE: Any pathology noted on this diabetic retinal evaluation should be confirmed by an appropriate ophthalmic examination. Lab Interpretation (test code = 61389-4) Abnormal [facility] [id number] 12:17:00Nadiya Lee MD 08/06/2019 12:18 PMDiabetic Foot Exam was performed at 08/06/2019 12:17 PM. Right foot sensation is normal, right foot pulses are normal, right foot appearance is normal. Left foot sensation is normal, left foot pulses are normal, left foot appearance is normal. [facility]
[2020-06-20] MEDS ORDERED: METFORMIN HCL500 MG PO (12:46)
[2020-06-20] MEDS ORDERED: LISINOPRIL10 MG PO (12:46)
[2020-06-20] MEDS ORDERED: METOPROLOL SUCC25 MG (12:46)
== END 2020-06-20 12:10 | disposition home or self-care (01) ==
LOC: FSED 11:23
DX: U07.1 COVID-19 (principal); R05 Cough; R50.9 Fever, unspecified; I10 Essential (primary) hypertension; E11.9 Type 2 diabetes mellitus without complications; E78.5 Hyperlipidemia, unspecified
CPT/HCPCS: 99282